=== PATIENT | female | born 1950 | race Caucasian/White ===

== ENCOUNTER 2019-07-02 16:15 | Emergency (ER) | payer OTHER, SELFPAY ==
[2019-07-02 16:18] VITALS: BP 159/87; PULSE 95; RESP 17; TEMP 37; O2SAT 97; BMI 23.9
--- NOTE | 2019-07-02 16:46 | ED.DCSUM_ITS ---
- ER Visit Summary Date of Service: 07/02/19 Chief Complaint: Right lower leg pain History of Present Illness: The patient is a 68 F who has right lower leg pain. She hit a cart while shopping at a local [employer] improvement store. She had a hematoma after this happened. It drained the blood. She still has local pain in the area. Her last tetanus is unknown. Pain is worse when she touches or moves that area. Physical Examination: Vital signs are reviewed. Right lower leg exam reveals tenderness locally to the distal mid tibial area anteriorly. There is a hematoma formation there. No deformity. She has full range of motion. No ankle or knee pain on examination. Test Results: Right tib-fib x-ray is negative for fracture. Emergency Department Course and Treatment: Patient's tetanus was updated. Her x-rays are negative. Will clean the wound. She will continue cleaning it at home. She was topical antibacterial cream. NSAIDs for pain, ice. She will follow-up with her PCP Treatment Plan: [] Disposition: Discharge Impression: Right lower leg hematoma This note was generated with [employer] dictation software. It may contain incorrect words, spelling, and punctuation that were not noted in review of the chart prior to signing ED Disposition - Plan for ED Patient: Referrals: Raz Flores DO [Primary Care Provider] -
--- NOTE | 2019-07-02 17:16 | RAD_ITS ---
STUDY: X-RAY - RIGHT TIBIA AND FIBULA REASON FOR EXAM: Female, 68 years old. Chin laceration TECHNIQUE: 2 view(s) of the tibia and fibula were obtained. COMPARISON: None. FINDINGS: Normal visualized tibia. Normal visualized fibula. The soft tissue structures are unremarkable. RAD/Tibia & Fibula 2 Views IMPRESSION: Normal x-ray examination of the tibia and fibula. Electronically Signed: Aung Sharma MD at 17:37 EST , Service support ,
[2019-07-02] MEDS: Diphth,Pertuss(Acell),Tet Vac 0.5 ML Vial IM (17:24)
--- NOTE | 2019-07-02 17:41 | ED.DEP ---
ED Disposition - Plan for ED Patient: Disposition: Home or Assisted Living Instructions: Hematoma Referrals: Raz Flores DO [Primary Care Provider] -
[2019-07-02 18:03] VITALS: RESP 16
== END 2019-07-02 18:03 | disposition home or self-care (01) ==
PROVIDERS: Emergency Provider Emergency Medicine; Family Provider Preventive Medicine Occupational Medicine; PCP Preventive Medicine Occupational Medicine
DX: S80.11XA Contusion of right lower leg, initial encounter (principal); M54.2 Cervicalgia; W22.8XXA Striking against or struck by other objects, initial encounter; Y93.9 Activity, unspecified; Y92.512 Supermarket, store or market as the place of occurrence of the external cause; Y99.9 Unspecified external cause status; Z23 Encounter for immunization
CPT/HCPCS: 73590; 90471; 90715; 99282

== ENCOUNTER 2021-11-23 12:30 | Outpatient (RCR) | payer OTHER, SELFPAY ==
--- NOTE | 2021-10-06 08:02 | HP.PTEVAL ---
Patient's Visit Information TAMMIE ARORA is a 71 year old F referred to Physical Therapy by Dr. Raz Flores DO with a diagnosis of vertigo, neck pain. Date of Evaluation: 10/06/21 Physical Therapist: Bryan Mtz, KIMOT, OCS, CSCS - Visit Plan Frequency: 2x /Week Duration: 2-4 Weeks Plan: 1-2x/week for positional treatments until dizzyness gone then consider treating neck for STM, ROM, manual and strength. - Subjective Has chronic neck pain since 1992 rupturing 2 discs. 4 weeks got worse when she decided to move some furniture and woke up the next morning with bad vertigo similar to what she had last summer after lifting heavy duffel bag. Has a traction unit at home that helped last summer. This vertigo is lasting longer. If she leans head to the right or tries to sleep on R side b/c pressure on neck can trigger vertigo. Neck is always stiff and sore but this is worse. Vertigo is a sudden circling and nausea. Worse if she lies down and has to hold neck. It lasts seconds. 4 weeks ago the vertigo lasted longer 30-45 seconds. Only sleeps on left side now primarily due to vertigo, gets up carefully. Chronic neck pain and has seen neurologist sometimes radiating down arm but not lately. This is mostly R sided neck stiffness/pain. Neck pain up to 6/10, not bad today just dull heaviness. 4/10 is her baseline for years. No arm symptoms lately but has had them in the past. Gets GASTELUM at times but that is normal for her. Not employed. Spends day doing alot of physical things, nothing stopping her from doing anything other than lifting laundry baskets. Exercises by jumping on small trampoline, able to do that now but stopped for a week. Power walks has slowed down. Does ARM for neck. Has seen [facility] for neck before. Uses head traction as needed, it has not helped lately. Balance is good unless moves head wrong(to the right). No falls. - Pain Neck pain Pain Intensity (Out of 10): 1 Pain Intensity Range: 1, 7 - Objective Walks and trasnfers slowly but normal with good balance. Steps reciprocal without rail. Cervical aROM slow into extension and only comfy with 20 degrees and deviates L. Rotations are symmetrical.. Very tense and stiff neck with tenderness R side. UE AROM WFL and strength myotomally symmetrical and WNL. reflexes 2/3 bi and tri. Sensation WNL in UE to gross light touch. - L HD. + R HD for up torsional nystagmus of 15 sec and dizzy. Treated with Herve and instruct. - Balance/Special Test Scores Functional Gait Assessment Score: 28 % Disability: 6.6700 Lower Extremity Functional Score: 69 - Goals Goal 1:: comfortable neck extension without hesitation Goal Time Frame: 2-4 Weeks Goal 2:: Dizzyness abolished. Goal Time Frame: 2-4 Weeks Goal 3:: Pt feel back to baseline. Goal Time Frame: 2-4 Weeks - Rehabilitation Potential Physical Therapy Diagnosis: BPPV and neck pain stiffness. Rehabilitation Potential: Good - Anticipated Interventions Patient/Client Instruction: Educate patient on: Condition, Plan of Care For the Purpose of:: To decrease pain, To increase tolerance to activity/condition/position Therapeutic Exercise to Include: Strength training, Postural training, Flexibilty training, Passive ROM, Active ROM Comment: vestibular ex For the Purpose of:: To decrease pain, To improve nutrient delivery to tissue, To improve muscle performance and motor function, To increase tolerance to activity/condition/position Manual Therapy Techniques to Include: Petrissage, Soft tissue mobilization For the Purpose of:: To decrease pain Thank you for the opportunity to evaluate your patient. For Medicare and Medicare HMO plans, please review the plan of care and approve it. It will need to be FAXED BACK to us at [phone] for Medicare purposes. For Medicare only, by signing this I certify the plan of care. Please let me know if there are questions or concerns regarding this plan of care. Physician Signature: Date:
--- NOTE | 2021-11-07 11:05 | HP.PTREVAL_ITS ---
Dr. Raz Flores, DO, It has been my pleasure to treat TAMMIE ARORA over the last 3 visits for vertigo, neck pain. Please see the progress note below for an update on the physical therapy plan of care! Subjective: No problems with dizzyness. Activities are normal and balance feels good. Pt very happy without dizzyness. Pt says neck feels pretty good. Stiff and pain level at baseline 1.5/[address] since 1993. Has had PT and other treatment that does not make it better than that. sometimes it gets much worse if she lifts too much or shifts improperly. Wants to learn what to do to keep it good. I need strength. No neck exercises right now. Objective/Function: - B hallpike matheus. 55 B rotation c/s and 25 extension with deviation R. R scapular dyskinesia with elevation of scap. Hard to elevate R scap but can do it slowly. Full UE AROM otherwise without increased pain. Max tender B UT and cervical parapsinals. Sensation UE WNL to gross light touch. Strength of UE 4- without myotomal problems. Plan Plan: weekly x 2-4 to progress ROM and strength of neck and posture via HEP. Next session please do cervical ext and gym based postural and UE and cervical strength program and give as HEP. New goals for neck adn good prognosis Balance/Gait/Functional tests - Balance/Special Test Scores Functional Gait Assessment Score: 30 % Disability: 0 Lower Extremity Functional Score: 69 Goals Goal 1:: comfortable neck extension without hesitation Goal Time Frame: 2-4 Weeks Goal Progress: Progressing Goal 2:: Dizzyness abolished. Goal Time Frame: 2-4 Weeks Goal Progress: Goal Met Goal 3:: Pt feel back to baseline. Goal Time Frame: 2-4 Weeks Goal Progress: Goal Met Goal 4:: I approp HEP for cervical and postural strength Goal Time Frame: 2-4 Weeks Goal Progress: NEW GOAL Goal 5:: increase cervical rotation to 55 B and ext to 45 to improve function and health of neck Goal Time Frame: 2-4 Weeks Goal Progress: NEW GOAL Anticipated Interventions Patient/Client Instruction: Educate patient on: Condition, Plan of Care For the Purpose of:: To decrease pain, To increase tolerance to acti vity/condition/position Therapeutic Exercise to Include: Strength training, Postural training, Flexibilty training, Passive ROM, Active ROM Comment: vestibular ex For the Purpose of:: To decrease pain, To improve nutrient delivery to tissue, To improve muscle performance and motor function, To increase tolerance to activity/condition/position Manual Therapy Techniques to Include: Petrissage, Soft tissue mobilization For the Purpose of:: To decrease pain Please do not hesitate to contact me at [phone] by phone or if you have questions or concerns regarding this new plan of care! Sincerely, Bryan Mtz, DPT, OCS, CSCS
--- NOTE | 2021-11-23 13:18 | HP.PTDCSUM ---
It has been my pleasure to treat TAMMIE Wells [facility] referred by Dr. Raz Flores DO, with the diagnosis of vertigo, neck pain for a total of 4 visit(s). Discharge Date: 11/23/21 Please see the following information for a summary of their discharge status. Subjective: I was sick last week. Better this week, had a cold. Exercises: has had some GASTELUM possibly due to isomteric retraction, did not start cervical traction again as she forgot. Went to [place] last week. No dizzyness. Has been stressed lately and anxious about sickness. Neck feels pretty good. Neck pain Pain Intensity (Out of 10): 2 % Improvement: 90 Objective/Function: 60 B rotation ROM today and 40 extension. Pt doing very well with exercises in gym and comfortable continuing them I at [employer]. Goal 1:: comfortable neck extension without hesitation Goal Progress: Progressing Goal 2:: Dizzyness abolished. Goal Progress: Goal Met Goal 3:: Pt feel back to baseline. Goal Progress: Goal Met Goal 4:: I approp HEP for cervical and postural strength Goal Progress: Goal Met Goal 5:: increase cervical rotation to 55 B and ext to 45 to improve function and health of neck Goal Progress: Progressing Plan: d/c to HEP Discharge Comments: Pt to continue via HEP and contact doctor if condition worsens again. Did well with vertigo treatments. If there are questions or concerns regarding this patient's physical therapy, please feel free to call me at [phone]. Thank you for the referral of this patient. Sincerely, Bryan Mtz, DPT, OCS, CSCS Balance/Gait/Functional tests - Balance/Special Test Scores Functional Gait Assessment Score: 30 % Disability: 0 Dizziness Score: 0 Lower Extremity Functional Score: 69
== END 2021-11-23 15:18 | disposition home or self-care (01) ==
LOC: PT 12:30
PROVIDERS: PCP Preventive Medicine Occupational Medicine; Referring Provider Preventive Medicine Occupational Medicine; Visit Provider Preventive Medicine Occupational Medicine
DX: R42 Dizziness and giddiness (principal); M54.2 Cervicalgia
CPT/HCPCS: 97110; 97161; 97164; 97530

== ENCOUNTER → 2023-05-09 | Outpatient (CLI) | payer OTHER, SELFPAY ==
--- NOTE | 2023-05-09 | LES_PTH ---
PATIENT: TAMMIE ARORA LOC: [facility] U#:[id number] AGE/SX: 72/F ROOM: RE05/09/[address]: Dr. Jose Singh MD : 1950 BED: DIS: 05/09/2023 SPEC #: [id number] RECD: 05/09/23 15:18 STATUS: BRI REMk #: [id number] MINA: 05/09/23 00:[address]: Jose Singh DEPT: SURGICAL PATHOLOGY RECD BY: Gold Shi ENTERED: 05/10/23 10:29 SP TYPE: Lesion OTHR DR: Dr. Raz Flores, DO Tissues: Skin of eyelid, NOS Procedures: Surgery Specimen Level IV HEADER OPERATION: Lesion excision right lower lid PRE-OP DIAGNOSIS: Increased size with vascularity TISSUE SUBMITTED: Right lower lid lesion MICROSCOPIC DIAGNOSIS Right lower lid lesion, biopsy: Verrucous keratosis. Negative for malignancy. SJ:carly 05/13/2023 COMMENT Focal bacterial colonization is noted in the superficial epithelial layers. Clinical correlation and appropriate follow up are necessary. Case has been reviewed in consultation with Dr. Combs who concurs with the above diagnosis. IDC:AM MICROSCOPIC DESCRIPTION Slides are reviewed. GROSS DESCRIPTION Received in fixative is one container labeled with the patient's name and designated right lower lid. The specimen consists of an irregular fragment of dark udrán soft tissue measuring 0.1 x <0.1 x <0.1 cm. The specimen is totally submitted in one cassette. / AM:carly 05/10/2023 TC:5 CPT: 65815
== END | disposition home or self-care (01) ==
PROVIDERS: PCP Preventive Medicine Occupational Medicine; Visit Provider Ophthalmology
DX: H02.9 Unspecified disorder of eyelid (principal); L57.0 Actinic keratosis
CPT/HCPCS: 88305